=== PATIENT | male | born 1930 | race Caucasian/White ===

== ENCOUNTER → 2017-03-28 | Outpatient (CLI) | payer MEDICARE ==
[2017-03-28 16:53] LABS: IONIZED CALCIUM 1.24 mmol/L (1.13-1.32)
[2017-03-28 17:14] LABS: CREATINE KINASE 103 U/L (39-308); CREATININE 1.5 mg/dL (0.7-1.3); GFR 44.4
[2017-03-28 17:14] LABS: BLOOD UREA NITROGEN 32 mg/dL (8-26)
[2017-03-28 17:20] LABS: THYROID STIM HORMONE (TSH) 2.817 uIU/mL (0.358-3.74)
[2017-03-28 17:20] LABS: FREE T4 1.12 ng/dL (0.76-1.46)
[2017-03-28 17:21] LABS: VITAMIN-B12 778 pg/mL (247-911)
== END | disposition home or self-care (01) ==
LOC: LAB 16:20
DX: C34.32 Malignant neoplasm of lower lobe, left bronchus or lung (principal); R26.9 Unspecified abnormalities of gait and mobility
CPT/HCPCS: 36415; 82306; 82310; 82550; 82565; 82607; 84439; 84443; 84520

== ENCOUNTER → 2017-04-02 | Outpatient (CLI) | payer MEDICARE ==
[2017-04-02] MEDS: GADOBUTROL 10 MMOL/10 ML VIAL IV ×2 (11:10)
== END | disposition home or self-care (01) ==
LOC: MRI 09:15
DX: C34.90 Malignant neoplasm of unspecified part of unspecified bronchus or lung (principal); C79.51 Secondary malignant neoplasm of bone; M54.2 Cervicalgia; M25.512 Pain in left shoulder; R26.81 Unsteadiness on feet; R53.1 Weakness
CPT/HCPCS: 72156; 72158; A9585